=== PATIENT | female | born 1985 | race Asian ===

== ENCOUNTER 2022-10-12 15:12 | Outpatient (CLI) | payer OTHER, SELFPAY | END 2022-10-12 15:13 | disposition home or self-care (01) | PROVIDERS: Visit Provider Nurse Practitioner Family | DX: N39.0 Urinary tract infection, site not specified (principal) | CPT/HCPCS: 87086 ==

== ENCOUNTER 2023-02-18 08:05 | Outpatient (CLI) | payer OTHER, SELFPAY ==
--- NOTE | 2023-02-18 08:15 | CRLHL7_ITS ---
For Patients: As a result of the Century Cures Act, medical imaging exams and procedure reports are released immediately into your electronic medical record. You may view this report before your referring provider. If you have questions, please contact your health care provider. INDICATION: First trimester scan, establish dates. COMPARISON: None. TECHNIQUE: Real-time linda-scale imaging of the pelvis was performed. FINDINGS: Sonographic imaging demonstrates a single living intrauterine gestation. The embryo demonstrates a regular cardiac rate measuring 179 beats per minute. The embryo`s crown-rump length measurement of 2.0 cm corresponds to a gestational age of 8 weeks 4 days with a sonographic due date of 09/26/2023. There is a normal-appearing yolk sac. There are no gross abnormalities noted within the embryo at this early state of development. The gestational sac has a normal appearance. There is no evidence of a perigestational hemorrhage. The amount of fluid within the sac appears appropriate for gestational age. The cervix is closed. The myometrium appears normal. The ovaries are of normal size. Corpus luteal cyst left ovary measuring 2.0 cm. There are no suspicious fluid collections noted in the cul-de-sac. IMPRESSION: Normal first trimester OB ultrasound exam. Gestational age calculated at 8 weeks 4 days with a sonographic due date of 09/26/2023. Dictated by Pj Pearce MD @ 02/18/2023 11:08:57 AM (Electronically Signed)
== END 2023-02-18 08:06 | disposition home or self-care (01) ==
LOC: US 08:06
PROVIDERS: Visit Provider Physician Assistant
DX: Z34.91 Encounter for supervision of normal pregnancy, unspecified, first trimester (principal); Z3A.08 8 weeks gestation of pregnancy
CPT/HCPCS: 76817; 86592; 86703; 86762; 86787; 86850; 86900; 86901; 87086; 87491; 87591

== ENCOUNTER 2023-02-18 09:13 | Outpatient (CLI) | payer OTHER, SELFPAY ==
[2023-02-18 14:34] LABS: Chlamydia DNA Amplified* NOT DETECTED (No Detected); GC DNA Amplified* NOT DETECTED (No Detected)
== END 2023-02-18 09:14 | disposition home or self-care (01) ==
PROVIDERS: Visit Provider Physician Assistant
DX: Z34.91 Encounter for supervision of normal pregnancy, unspecified, first trimester (principal); Z3A.08 8 weeks gestation of pregnancy
CPT/HCPCS: 86592; 86703; 86762; 86787; 86803; 86850; 86900; 86901; 87086; 87340; 87491; 87591

== ENCOUNTER 2023-07-06 09:29 | Outpatient (CLI) | payer OTHER, SELFPAY | END 2023-07-06 09:30 | disposition home or self-care (01) | LOC: NFLDREF 07-08 13:04 | PROVIDERS: Visit Provider Obstetrics & Gynecology | DX: Z34.90 Encounter for supervision of normal pregnancy, unspecified, unspecified trimester (principal) | CPT/HCPCS: 86592 ==

== ENCOUNTER 2023-08-31 09:34 | Outpatient (CLI) | payer OTHER, SELFPAY ==
--- NOTE | 2023-08-31 09:45 | CRLHL7_ITS ---
For Patients: As a result of the Century Cures Act, medical imaging exams and procedure reports are released immediately into your electronic medical record. You may view this report before your referring provider. If you have questions, please contact your health care provider. INDICATION: Planned TECHNIQUE: Real time linda scale imaging of the fetus was performed. COMPARISON: 02/18/2023 FINDINGS: Sonographic imaging demonstrates a single living intrauterine gestation. Fetus demonstrates a regular cardiac rate of 130 beats per minute. Fetus has a vertex position. The placenta lies fundal. Amniotic fluid volume appears normal and there is a single deepest pocket of 4.4 cm. The estimated weight is 2913gm which lies at the 61st %. BPD 47th percentile. HC 38th percentile. AC 82nd percentile. FL 29 percentile. The fetus was active and demonstrated normal breathing movements. There was normal flexion and extension of the trunk and extremities. IMPRESSION: Normal biophysical profile score 8/8. Sonographic gestational age 36 weeks 1 day and sonographic due date 09/27/2023. Good correlation with dates. Estimated weight 61st percentile. Abdominal circumference 82nd percentile. Dictated by Pj Pearce MD @ 08/31/2023 1:04:03 PM (Electronically Signed)
== END 2023-08-31 09:35 | disposition home or self-care (01) ==
LOC: US 09:34
PROVIDERS: Visit Provider Obstetrics & Gynecology
DX: O09.523 Supervision of elderly multigravida, third trimester (principal); O34.219 Maternal care for unspecified type scar from previous cesarean delivery; Z98.891 History of uterine scar from previous surgery; Z3A.36 36 weeks gestation of pregnancy
CPT/HCPCS: 76816; 76819; 87081; 87653

== ENCOUNTER 2023-09-13 20:53 | Inpatient (IN) | payer OTHER, SELFPAY ==
[2023-09-13 20:22] VITALS: BP 112/60; PULSE 80; RESP 16; TEMP 36.7
[2023-09-13 20:47] LABS: Amnisure Rom* POSITIVE
--- NOTE | 2023-09-13 21:00 | P.LDBA_ITS ---
Subjective History of Present Illness Narrative: Patient is being admitted to Labor and Delivery for PROM at 37 6/7 weeks. She is a 37 year old at 37 6/7 weeks gestation. She is not feeling strong contractions. Her cervical exam in clinic today was / -1. Specific Issues/Plans MARCEL 09/28/23 by LMP, c/w 1st trimester USN Spouse: Dustin. Daughter: Jeanette. Baby: Girl! desires TOLAC - consent completed 07/06 H&P 09/07/23 by CGM 1. AMA * 03/23/23 Maternity T21: No increased risk for aneuploidy. * 04/29/2023 [facility] LvL 2 USN: Transverse w/ head on maternal L, fundal placenta w/o previa, 3 vessel cord, SDP: 3.9cm. EFW: 254gm, 9oz., 71%. No anatomic abnormalities were identified. 2. History of * Induction for severe right lower quadrant pain: Arrest of descent, suspected chorio, right tubal torsion * Desires * Likelihood of successful : 54.3% (previously thought to be 88%) * Consent form given to the patient and reviewed with her on 03/23/2023 * Consent signed: 07/06/23 * Ultrasound for EFW at 36 weeks: EFW at 61st percentile. AC at 82nd percentile. 3. Anxiety, doing well without medication 4/ h/o LEEP 2016, see problem list for pap/colp history * pap 02/18/23:NILM, negative HPV Tdap 07/20 Flu: 08/03/2023 Declines COVID OB - Problem Based A/P Additional Plan (1) Hx of section: Status: Acute Plan: Desires TOLAC. (2) PROM (premature rupture of membranes): Status: Acute Plan: Given lack of apparent active labor and that nearly 8 hrs have passed since probable SROM, I recommended initiation of pitocin. Continuous monitoring. I anticipate successful TOLAC. Epidural as desired. Delivery/Labor/Induction Plan Induction method: per pitocin protocol OB Result Labs Labs: Hemoglobin 12.1 today Labs HBsAG: negative OB Exam Physical Exam Vital signs: Temp Pulse Resp BP 98.1 F 80 16 112/60 09/13/23 20:22 09/13/23 20:22 09/13/23 20:22 09/13/23 20:22 Narrative: Physical exam: General: No acute distress Psych: Alert and oriented x3, full affect HEENT: Normocephalic, atraumatic Neck: No cervical adenopathy, no thyromegaly Heart: Regular rate and rhythm, no murmur rub or gallop Lungs: Clear to auscultation bilaterally Abdomen: Soft, nontender, gravid, cephalic lie, back to maternal right, EFW 7 lb by Jesse's Lower extremities: No edema or erythema Cervical exam per RN: / 0. tracing: Baseline 130 / accels present / no decels / moderate variability. Reactive, reassuring tracing
[2023-09-13 21:49] LABS: Basophils Absolute Auto 0.04 K/uL (0.00-0.30); Basophils Percent Auto 0.5 % (0.0-3.0); Eosinophils Percent Auto 1.1 % (0.0-7.0); Hematocrit 36.7 % (33.0-51.0); Hemoglobin* 12.1 gm/dL (12.0-16.0); Immature Granulocytes Abs Auto 0.05 K/uL (0.00-0.30); Immature Granulocytes Pct Auto 0.6 %; Lymphocytes Percent Auto 17.8 % (20-44); Mean Corpuscular HGB Conc 33 gm/dL (32-36); Mean Corpuscular Hemoglobin 30 pg (26-34); Mean Corpuscular Volume 90 fL (80-100); Monocytes Percent Auto 6.6 % (0.0-11.0); Neutrophils Percent Auto 73.4 % (42.0-72.0); Platelet Count* 218 K/uL (140-440); RDW Coefficient of Variation % 11.6 % (11.5-15.5); Red Blood Count 4.08 m/uL (4.00-5.20)
[2023-09-13 21:53] LABS: Slide Review Reflex No
[2023-09-13 22:10] VITALS: TEMP 37.2
[2023-09-13] MEDS: LACTATED RINGERS 1000 ML 1,000 ML 125 ML IV (22:20)
[2023-09-13] MEDS: OXYTOCIN 30 unit/500 ML in NS 30 UNIT/500 ML BAG IVPB (22:20)
[2023-09-13 23:45] VITALS: BMI 26.6
[2023-09-14] VITALS (90 sets, daily range): BP systolic 77–156; BP diastolic 43–82; PULSE 66–112; RESP 16–18; TEMP 36.5–37.1; O2SAT 92–100
--- NOTE | 2023-09-14 05:48 | PM.OBPNL ---
Subjective Time Seen by Provider: 05:30 Date Seen: 09/14/23 Narrative: Canelo is a 37 yo O1B8-3-30 at 38 0/7 weeks' gestation admitted after SROM at 2:30 PM yesterday. She has a history of prior for arrest of descent in the setting of chorioamnionitis. She also had right tubal torsion and right fallopian tube was removed at that time. At presentation to Center last night, she was found to be 6 cm / 90 / 0 station by RN. She was not corinna regularly at that time, and was not having pain with contractions. She was started on pitocin for augmentation. Since at least 3:30, she has had stronger contractions. She is breathing through them. She has not yet requested epidural. Objective Exam: Gen - NAD Abd - soft, NT, gravid Cervical exam - 7 / 100 / -1 and deviated slightly to patient's right. AROM of forebag, scant clear fluid noted. Vital Signs: Last Vital Signs Temp 97.9 F 09/14/23 04:29 Pulse 68 09/14/23 03:31 Resp 16 09/14/23 00:02 BP 106/63 09/14/23 03:31 Pulse Ox 98 09/14/23 03:31 Comments: tracing: Baseline 130 / accels present / no deceleration / moderate variability Contractions Q 4-5 min Pitocin at 2 mU/min Contractions Pitocin Rate (mU/min): 2 Assessment Assessment: active labor Amniotic Membrane Status: AROM (AROM of forebag 0530) Status: Category l Rod And Tube Straightener Variability: Moderate (6-25) Tracing Comments: Category I tracing, reassuring Labor Progress: She has had slow progress through active phase. At presentation, she did not appear to be in active labor despite cervical dilation of 6 cm; she was not corinna regularly or having pain with contractions. I suspect disadvantageous position of head. TOLAC. Hx for arrest of descent. Maternal Status: Reassuring. Plan Plan: Continue pitocin augmentation. Repeat cervical exam 0730, or sooner depending on clinical situation. Favor IUPC placement if no change in cervix.
[2023-09-14] MEDS: LIDOCAINE 2% (PF) 5 ML VIAL EPIDURAL (06:38)
[2023-09-14] MEDS: ROPIVACAINE 0.2% 100 ml 100 ML 12 MG EPIDURAL (06:38)
--- NOTE | 2023-09-14 07:08 | P.ANBPRC_ITS ---
[facility] Medical History Torsion of right fallopian tube ?N83.521 - Torsion of right fallopian tube (ICD-10) History of abnormal cervical Papanicolaou smear ?Z87.42 - Personal history of other diseases of the female genital tract (ICD-10) Tinnitus ?H93.19 - Tinnitus, unspecified ear (ICD-10) Eczema ?L30.9 - Dermatitis, unspecified (ICD-10) History of abnormal cervical Papanicolaou smear ?Z87.42 - Personal history of other diseases of the female genital tract (ICD-10) Surgical History Status post primary low transverse section (08/2021) ?Z98.891 - History of uterine scar from previous surgery (ICD-10) History of unilateral salpingectomy (08/2021) ?Z90.79 - Acquired absence of other genital organ(s) (ICD-10) 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 Non-smoker What is your current living situation?: I presently have a place to live Problems where you live: no known problems In the past 12 months, utilities in danger of being shut off: no In past 12 months, lack of transportation kept you from medical appts, meetings, work, or getting things needed for daily living: no In the past 12 mos, have been you worried that your food would run out before you had money to buy more?: never true In the past 12 mos, the food you bought just didn't last and you didn't have money to buy more?: never true Smoking Status: Never smoker How often does anyone, including family, friends and others, physically hurt you : never How often does anyone, including family, friends and others, insult or talk down to you: never How often does anyone, including family, friends and others, threaten you with harm: never How often does anyone, including family, friends and others, scream or curse at you: never Little interest or pleasure in doing things: not at all Feeling down, depressed, or hopeless: not at all Meds Home Medications and Allergies Home Medications Medication Instructions Recorded Confirmed Type prenat.vits,yesenia,woi-vkye-ciudk 1 tab PO QDAY 02/18/23 09/13/23 History cetirizine 10 mg capsule (Zyrtec) 10 mg PO QDAY PRN 07/20/23 09/13/23 History Allergies Allergy/AdvReac Type Severity Reaction Status Date / Time No Known Allergies Allergy Verified 09/13/23 20:25 Results Labs Labs: Laboratory Results - last 24 hr 09/13/23 09/13/23 20:38 21:02 WBC 8.80 RBC 4.08 Hgb 12.1 Hct 36.7 MCV 90 MCH 30 MCHC 33 RDW Coeff of Shaye 11.6 Plt Count 218 Neut % (Auto) 73.4 H Lymph % (Auto) 17.8 L Price % (Auto) 6.6 Eos % (Auto) 1.1 Baso % (Auto) 0.5 Neut # (Auto) 6.50 Lymph # (Auto) 1.60 Price # (Auto) 0.60 Eos # (Auto) 0.10 Baso # (Auto) 0.04 Abs Immat Gran (auto) 0.05 Imm/Tot Granulo (auto) 0.6 Membrane Rupture POSITIVE Blood Type B Positive Antibody Screen NEGATIVE Vital Signs Vital Signs: Last Vital Signs Temp 97.9 F 09/14/23 04:29 Pulse 67 09/14/23 07:06 Resp 16 09/14/23 00:02 BP 118/58 L 09/14/23 07:06 Pulse Ox 100 09/14/23 07:07 Weight: 68.356 kg Height: 160.02 cm Anesthesia Procedures Epidural Insertion Patient Location: OB Start Time: 06:30 Stop Time: 07:08 Start Date: 09/14/23 Stop Date: 09/14/23 Reason for Block: procedure for pain Patient Position: sitting Performed By: Veto Perdomo [employer]: Sukh Robles Preanesthetic Checklist: IV checked, risks and benefits discussed, monitors and equipment checked, pre-op evaluation, timeout performed and anesthesia consent Prep: chlorhexidine gluconate Monitoring: blood pressure monitoring, continuous pulse oximetry and heart rate Approach: midline Vertebral Space: lumbar (1-5) Epidural Technique: PARAS saline Needle Type: Tuohy needle Injection Technique: continuous catheter Needle gauge: 17 Needle Length (cm): 10 cm Needle Insertion Depth (cm): 7 Catheter Gauge: 19 Catheter Type: multi-orifice Catheter at skin depth (cm): 14 Test Dose Result: negative and lidocaine 1.5% with epinephrine 1 to 200,000
[2023-09-14] MEDS: LACTATED RINGERS 1000 ML 1,000 ML 125 ML IV ×2 (07:14→12:15)
[2023-09-14] MEDS: PHENYLEPHRINE 100 MCG/ML SYRINGE IVP ×6 (07:28→10:10)
--- NOTE | 2023-09-14 07:59 | P.OBPN_ITS ---
Subjective Time Seen by Provider: 07:45 Date Seen: 09/14/23 Narrative: Ms. Garcia is a 37yo at 38w0d admitted for SROM. course is complicated by prior delivery (?arrest of descent, chorio, tubal torsion) and AMA. Her labor course has been complicated by labor dystocia in the active phase, where she was 6cm on admission but not corinna regularly/painfully. She made change to 7cm as of 0330 by RN exam, unchanged at [address] Aldrich's exam. In the interim, she has noted increasingly painful contractions and how is s/p epidural placement. Denies vaginal bleeding, endorses movement. Reviewed abnormal progression through the active phase of labor. Pitocin is running at 2mu/min. Discussed potential risks/benefits of IUPC and potential diagnosis of arrest of dilation if unchanged at 0930. Objective Exam: EXAM: Vital Signs: as above Heart Tones: Category 2. Baseline 125bpm, moderate variability, accelerations present, late decelerations present. Ongoing treatment of h ypotension with phenylephrine. SVE: /0 Vital Signs: Last Vital Signs Temp 97.8 F 09/14/23 07:18 Pulse 94 09/14/23 07:54 Resp 18 09/14/23 07:18 BP 99/51 L 09/14/23 07:54 Pulse Ox 100 09/14/23 07:52 Contractions Pitocin Rate (mU/min): 2 Assessment Amniotic Membrane Status: AROM (AROM of forebag 0530) Status: Category l Plan Plan: Ms. Garcia is a 37yo here for SROM in the setting of TOLAC. course complicated by prior ([employer] success 54%, arrest of descent/chorio/tubal torsion), AMA. She has had abnormal progression through the active phase of labor, now /0 on pitocin at 2mu/min. status has been reassuring in general, though we are currently treating maternal hypotension s/p epidural placement. Moderate variability with accelerations noted. - Plan to continue pitocin titration per FHR and toco data. We will hold off on IUPC placement at this time, given progression of her cervical exam. - Anticipate next exam in 2 hours, sooner as clinically indicated. - BT B+ - GBS negative - EFW 2913gm, 61%ile on 08/31
[2023-09-14] MEDS: LACTATED RINGERS 1000 ML 1,000 ML 1200 ML IV (08:03)
[2023-09-14] MEDS: ePHEDrine sulfate 5 MG/ML inj 10 MG IVP ×2 (08:23→08:35)
[2023-09-14] MEDS: ONDANSETRON 2 MG/ML inj 4 MG IV (08:37)
--- NOTE | 2023-09-14 13:20 | P.OBPN_ITS ---
Subjective Time Seen by Provider: 13:00 Date Seen: 09/14/23 Narrative: Ms. Garcia is a 37yo at 38w0d admitted for SROM. course is complicated by prior delivery (?arrest of descent, chorio, tubal torsion) and AMA. Her labor course was notable for slow progression through the active phase of labor and symptomatic hypotension s/p epidural placement. She has been complete for 3 hours, pushing for about 2 of those. Pushing was held due to symptomatic hypotension requiring treatment and ultimately improved after reducing epidural dose with Anesthesia. Category 2 FHR tracing, for recurrent variable decelerations that rapidly improve. Outside of decels, there is a normal baseline, moderate variability and accelerations present. In to assess pushing progress, where she has made modest descent from 0 to +1. Position palpates ROT and was confirmed by US - where d iscussion was held regarding continued pushing vs trial of manual rotation. Risks of manual rotation including failure to rotate, return to OT position, heart rates changes and cord prolapse reviewed. Patient wished to proceed. The head was gently elevated, easily turned in counter clockwise direction to direct OA. Upon a push, the head re-engaged in the pelvis with descent noted. Plan to continue maternal pushing efforts for another hour. At that time, she will have been complete/pushing for 4 hours. All questions answered. Objective Vital Signs: Last Vital Signs Temp 97.9 F 09/14/23 13:10 Pulse 72 09/14/23 13:10 Resp 18 09/14/23 13:10 BP 105/57 L 09/14/23 13:10 Pulse Ox 100 09/14/23 07:52 Contractions Pitocin Rate (mU/min): 2 Assessment Amniotic Membrane Status: AROM (AROM of forebag 0530) Status: Category l
--- NOTE | 2023-09-14 14:34 | P.OBPN_ITS ---
Subjective Time Seen by Provider: 13:15 Date Seen: 09/14/23 Narrative: Delayed documentation due to patient care. Ms. Garcia is a 37yo at 38w0d admitted for SROM. course is complicated by prior delivery (?arrest of descent, chorio, tubal torsion) and AMA. Her labor course was notable for slow progression through the active phase of labor and symptomatic hypotension s/p epidural placement. She has been complete for 3 hours, pushing for about 2 of those. Pushing was held due to symptomatic hypotension requiring treatment and ultimately improved after reducing epidural dose with Anesthesia. She has been complete and pushing for more than 4 hours. She is 1 hour post manual rotation for OT position, now GT (<45 degrees rotation required) and +2 station. There is moderate caput. She makes good descent with expulsive efforts, pelvis is felt to be adequate. heart rate is category 2 for recurrent variable decelerations. Between decels, there is a normal baseline and moderate variability. Acceleration can be elicited with scalp stim. I explained with Canelo that given her prolonged 2nd stage of labor, I would recommend we proceed with expedited delivery. In addition, she has had a persisting category 2 heart rate tracing for variable decelerations but in general her status is reassuring. I explained that we have 2 options, the including trial of forceps assisted vaginal delivery verses a repeat delivery. I explained operative delivery can be accomplished via vacuum or forceps. In her instance, I feel forceps would be the optimal modality given +2 station, moderate caput and rotation required from GT position. Risks of forceps assisted vaginal delivery were explicitly reviewed - including failure requiring delivery, higher order maternal perineal lacerations (OASIS injury/3rd and 4th degree), bruising, laceration, nerve palsy and/or skull fracture. I explained that mediolateral episiotomy has been shown in some studies to decrease the incidence of OASIS injuries, where we would make a d ecision at the time of delivery whether episiotomy is required given to degree of descent and assessment of perineum. Alternatively, we reviewed risks with repeat delivery including bleeding, infection, damage to surrounding structures, and difficult extraction. All questions were answered to the best my abilities. Following this discussion, she desires trial of forceps assisted vaginal delivery. Plan to complete this in the operating room, to allow for immediate conversion to repeat delivery if required. Written consent for trial of forceps, forceps assisted vaginal delivery, repeat delivery and proceed as indicated was obtained. Objective Vital Signs: Last Vital Signs Temp 98.6 F 09/14/23 13:55 Pulse 92 09/14/23 14:29 Resp 18 09/14/23 13:10 BP 113/60 09/14/23 14:29 Pulse Ox 100 09/14/23 14:07 Contractions Pitocin Rate (mU/min): 2 Assessment Amniotic Membrane Status: AROM (AROM of forebag 0530) Status: Category l
[2023-09-14] MEDS: ACETAMINOPHEN 500 MG TABLET 1000 MG PO (17:50)
--- NOTE | 2023-09-14 19:48 | W.PM.VAGDEL1 ---
Procedure Procedure Done: Global Events: Previous and AMA Intrapartal Events: Labor Augmentation and Prolonged 2nd Stage >2.5 Hrs Delivery augmentation: pitocin Delivery monitor: external FHT Route of delivery: forceps Indication for instrumentation: other (Prolonged second stage, category 2 FHR tracing) Episiotomy description: None Laceration description: Perineal - 3rd Degree (3A) Delivery repair: Vicryl Estimated blood loss (mL): 380 Anesthesia type: Epidural Disposition: floor Complications: Prolonged second stage of labor Category 2 FHR tracing Narrative: Ms. Garcia is a 37yo at 38w0d admitted for SROM. course is complicated by prior delivery (?arrest of descent, chorio, tubal torsion) and AMA. Labor course was notable for slow progression in the active phase and prolonged second stage. She had persistent OT position, s/p manual rotation to direct OA. She pushed for an hour following rotation, achieving station of +2 with GT position. At this time, the second stage had been 4.5 hours in length where expedited delivery was recommended. Risks/benefits of trial of forceps vs repeat reviewed, where written consent was obtained for trial of forceps assisted vaginal delivery and proceed as indicated was obtained. Patient was relocated to the OR in order to allow for expedient conversion to repeat if forceps were unsuccessful. Patient was placed in lithotomy position and bladder drained of clear urine with a red rubber catheter, about 75 mL. The SVE notable for +2 station, GT position, moderate caput and no moulding. Maternal pelvis adequate. EFW approximately 3200g. A matched set of Luikhart forceps was obtained. The posterior blade was coated with soap and inserted in the patient's vagina on the left, in cephalic application along right ear. The anterior blade was then applied to the left side of the head in direct cephalic application. The forceps lock was readily articulated. Correct application was confirmed with sagittal suture in the midline between the blades and the posterior fontanelle just superior to the plane of the shanks. No maternal soft tissue was entrapped between the blades. Forceps application time was 1335. Forceps utilized to gently rotate head about 30? clockwise to direct OA. With the next maternal contraction, careful downward traction was placed applied alongside maternal expulsive efforts. Excellent descent was noted and the occiput distended the perineum. The forceps handles were then directed cephalad in a J fashion and the forceps were disarticulated carefully just prior to expulsion of the head, at which time the perineum was intact. The anterior shoulder readily delivered with gentle downward traction and a vigorous delivered, born and making spontaneous cry and placed on maternal abdomen. Delayed cord clamping was performed with pediatric team in attendance, for 60 seconds. The cord was clamped and cut, and placenta delivered after active management of the 3rd stage. The perineum was inspected and the 3A laceration was noted. Repair was performed under existing epidural anesthesia in layers. Capsule of the external anal sphincter was reinforced with 2 interrupted 0 Vicryl sutures. Deep vaginal/perineal tissue was reinforced with interrupted 0 Vicryl sutures. A running 2 0 Vicryl was then utilized to repair from the vaginal apex down the perineum, and ultimately was run in a subcuticular fashion from the most distal point of the tear back into the vagina and tied. Uterine tone was noted to be excellent. QBL 380mL. Mother and safe together in recovery. No complications. Debrief completed. Gender: Female total score - 1 minute: 8 total score - 5 minute: 9
[2023-09-14] MEDS: IBUPROFEN 600 MG TABLET PO (20:14)
[2023-09-14] MEDS: MAGNESIUM HYDROXIDE 30 ML ORAL.SUSP PO (20:14)
[2023-09-15 00:04] VITALS: BP 98/61; PULSE 75; RESP 16; TEMP 37; O2SAT 96
[2023-09-15 03:52] VITALS: BP 101/64; PULSE 65; RESP 12; TEMP 36.6; O2SAT 98
[2023-09-15 06:49] LABS: Hemoglobin* 9.8 gm/dL (12.0-16.0)
--- NOTE | 2023-09-15 07:41 | PM.OBDSVD1 ---
DS: Providers Provider Date Seen: 09/15/23 Date of admission: 09/13/23 20:53 Primary care physician: Not a Local Provider Admitting Clinician: Pia Aldrich MD Attending Physician on discharge: Pia Aldrich MD Date of Discharge: 09/15/23 DS: Diagnosis Discharge Diagnosis (1) Lactating mother: Status: Acute (2) care following vaginal delivery: Status: Acute (3) Forceps delivery: Status: Acute (4) Anemia, : Status: Acute Exam Narrative: Exam Narrative: GENERAL APPEARANCE:? normal affect, alert, no distress? MOOD:? appropriate? CHEST:? clear to auscultation and percussion? HEART:? regular rate and rhythm? ABDOMEN:? soft, non-tender the uterine fundus is 2 cm Below Umbilicus, Midline and is appropriate for the stage of recovery. ? PERINEUM:? mild edema of the perineum, there is a 3A degree that is healing well.? EXTREMITIES:? normal and no edema? Patient has no complaints? No active bleeding?? Doing well? She is requesting discharge home.? Const: Vital Signs, click to edit/add: Vital Signs - 24 hr 09/14/23 07:42 09/14/23 07:46 09/14/23 07:47 Temperature Pulse Rate 96 Pulse Rate [Pulse Oximeter] Respiratory Rate Blood Pressure 103/50 L Blood Pressure [Ri ght Arm] Pulse Oximetry 100 100 Oxygen Delivery Me thod 09/14/23 07:50 09/14/23 07:52 09/14/23 07:54 Temperature Pulse Rate 97 94 Pulse Rate [Pulse Oximeter] Respiratory Rate Blood Pressure 99/53 L 99/51 L Blood Pressure [Ri ght Arm] Pulse Oximetry 100 Oxygen Delivery Me thod 09/14/23 08:05 09/14/23 08:14 09/14/23 08:14 Temperature 97.9 F Pulse Rate 71 73 Pulse Rate [Pulse Oximeter] Respiratory Rate 16 Blood Pressure 90/50 L 94/52 L Blood Pressure [Ri ght Arm] Pulse Oximetry Oxygen Delivery Me thod 09/14/23 08:20 09/14/23 08:21 09/14/23 08:24 Temperature Pulse Rate 83 75 71 Pulse Rate [Pulse Oximeter] Respiratory Rate Blood Pressure 90/54 L 85/48 L 119/58 L Blood Pressure [Ri ght Arm] Pulse Oximetry Oxygen Delivery Me thod 09/14/23 08:29 09/14/23 08:34 09/14/23 08:40 Temperature Pulse Rate 95 87 104 H Pulse Rate [Pulse Oximeter] Respiratory Rate Blood Pressure 113/54 L 90/53 L 91/55 L Blood Pressure [Ri ght Arm] Pulse Oximetry Oxygen Delivery Me thod 09/14/23 08:44 09/14/23 08:50 09/14/23 08:53 Temperature 97.8 F Pulse Rate 112 H 69 Pulse Rate [Pulse Oximeter] Respiratory Rate Blood Pressure 77/48 L 92/43 L Blood Pressure [Ri ght Arm] Pulse Oximetry Oxygen Delivery Me thod 09/14/23 08:54 09/14/23 09:00 09/14/23 09:10 Temperature Pulse Rate 77 77 91 Pulse Rate [Pulse Oximeter] Respiratory Rate Blood Pressure 95/53 L 88/52 L 94/49 L Blood Pressure [Ri ght Arm] Pulse Oximetry Oxygen Delivery Me thod 09/14/23 09:20 09/14/23 09:24 09/14/23 09:31 Temperature Pulse Rate 99 96 91 Pulse Rate [Pulse Oximeter] Respiratory Rate Blood Pressure 102/52 L 97/55 L 105/60 Blood Pressure [Ri ght Arm] Pulse Oximetry Oxygen Delivery Me thod 09/14/23 09:34 09/14/23 09:45 09/14/23 09:55 Temperature Pulse Rate 93 101 H 93 Pulse Rate [Pulse Oximeter] Respiratory Rate Blood Pressure 99/57 L 95/51 L 94/52 L Blood Pressure [Ri ght Arm] Pulse Oximetry Oxygen Delivery Me thod 09/14/23 10:10 09/14/23 10:17 09/14/23 10:34 Temperature 97.9 F Pulse Rate 89 93 Pulse Rate [Pulse Oximeter] Respiratory Rate Blood Pressure 87/53 L 108/56 L Blood Pressure [Ri ght Arm] Pulse Oximetry Oxygen Delivery Me thod 09/14/23 10:45 09/14/23 10:55 09/14/23 11:11 Temperature Pulse Rate 77 81 67 Pulse Rate [Pulse Oximeter] Respiratory Rate Blood Pressure 95/56 L 90/54 L 100/62 Blood Pressure [Ri ght Arm] Pulse Oximetry Oxygen Delivery Me thod 09/14/23 11:19 09/14/23 11:27 09/14/23 11:41 Temperature 97.7 F Pulse Rate 74 86 Pulse Rate [Pulse Oximeter] Respiratory Rate Blood Pressure 107/61 116/69 Blood Pressure [Ri ght Arm] Pulse Oximetry Oxygen Delivery Me thod 09/14/23 12:26 09/14/23 12:27 09/14/23 12:41 Temperature 97.9 F Pulse Rate 70 92 Pulse Rate [Pulse Oximeter] Respiratory Rate Blood Pressure 93/55 L 106/57 L Blood Pressure [Ri ght Arm] Pulse Oximetry Oxygen Delivery Me thod 09/14/23 13:10 09/14/23 13:10 09/14/23 13:55 Temperature 97.9 F 98.6 F Pulse Rate 72 Pulse Rate [Pulse Oximeter] Respiratory Rate 18 18 Blood Pressure 105/57 L Blood Pressure [Ri ght Arm] Pulse Oximetry Oxygen Delivery Me thod 09/14/23 13:57 09/14/23 13:59 09/14/23 14:02 Temperature Pulse Rate 86 Pulse Rate [Pulse Oximeter] Respiratory Rate Blood Pressure 138/63 Blood Pressure [Ri ght Arm] Pulse Oximetry 100 100 Oxygen Delivery Me thod 09/14/23 14:07 09/14/23 14:17 09/14/23 14:29 Temperature Pulse Rate 93 92 Pulse Rate [Pulse Oximeter] Respiratory Rate Blood Pressure 144/62 H 113/60 Blood Pressure [Ri ght Arm] Pulse Oximetry 100 Oxygen Delivery Me thod 09/14/23 14:40 09/14/23 14:45 09/14/23 14:59 Temperature 98.2 F Pulse Rate 89 95 Pulse Rate [Pulse Oximeter] Respiratory Rate 16 Blood Pressure 119/69 125/66 Blood Pressure [Ri ght Arm] Pulse Oximetry Oxygen Delivery Me thod 09/14/23 15:14 09/14/23 15:29 09/14/23 15:40 Temperature 98.1 F Pulse Rate 82 99 Pulse Rate [Pulse Oximeter] Respiratory Rate 16 Blood Pressure 106/61 113/66 Blood Pressure [Ri ght Arm] Pulse Oximetry Oxygen Delivery Me thod 09/14/23 15:44 09/14/23 16:24 09/14/23 16:26 Temperature Pulse Rate 101 H 97 Pulse Rate [Pulse Oximeter] Respiratory Rate Blood Pressure 115/68 108/56 L Blood Pressure [Ri ght Arm] Pulse Oximetry 99 Oxygen Delivery Me thod 09/14/23 16:26 09/14/23 20:04 09/15/23 00:04 Temperature 98.7 F 98.3 F 98.6 F Pulse Rate Pulse Rate [Pulse Oximeter] 94 75 75 Respiratory Rate 16 16 16 Blood Pressure Blood Pressure [Ri ght Arm] 108/56 L 108/67 98/61 Pulse Oximetry 99 97 96 Oxygen Delivery Me thod Room Air Room Air Room Air 09/15/23 03:52 Temperature 97.9 F Pulse Rate Pulse Rate [Pulse Oximeter] 65 Respiratory Rate 12 Blood Pressure Blood Pressure [Ri ght Arm] 101/64 Pulse Oximetry 98 Oxygen Delivery Me thod Room Air Documenting provider has reviewed patient's vital signs: yes OB - DS: Summary Hospital Course Hospital Course: The patient is a 37 year old G 2 P 2 at 38.0 weeks gestation that was admitted to the Center on 09/13/23 for SROM. She desired a TOLAC and was AMA. She had a vaginal delivery complicated by prolonged second stage requiring forceps assisted delivery. She delivered a viable female . She is breast feeding denies complications or concerns. the patient has done well. Urinary output is adequate and she is voiding without difficulty.? Has a good appetite, is tolerating a general diet, is passing flatus, and has not had a bowel movement.? Has small amount of rubra lochia.? She is ambulating well. She is insure what she francis like to do for control. Reviewed options that are compatible with . Peripartum Data Infant delivery method: Vaginal (forceps assisted. ) Laceration description: Perineal - 3rd Degree (3A) Episiotomy description: None complications: none Infant Gender: Female Discharge Plan: Home Status at Discharge Functional status at discharge: independent ambulation Overall status at discharge: patient is progressing back to baseline Time Spent with Patient Time attestation: Total time spent providing and/or coordinating discharge services: Discharge Plan Discharge Disposition: Home, Self-Care Date of Admission: 09/13/23 20:53 Attending Provider on Discharge: Hanane Salter Primary Care Provider: Provider,Not a Local Condition: Stable Anticipated Discharge Date/Time: 09/15/23 16:00 Discharge Medications: New docusate sodium 100 mg Capsule 100 mg PO DAILY Qty: 90 0RF Rx Instructions: Take 1-2 tablets daily as needed for constipation. ibuprofen 600 mg Tablet 600 mg PO Q6H PRNQty: 30 0RF ferrous sulfate 325 mg (65 mg iron) tablet,delayed release (DR/EC) 325 mg PO Q OTHER DAY Qty: 90 0RF Continued prenat.vits,yesenia,pef-sebz-prosy Tablet 1 tab PO QDAY triamcinolone acetonide 0.1 % cream 1 applic topical BID PRN (Reason: eczema) Qty: 30 1RF Zyrtec 10 mg capsule 10 mg PO QDAY PRN Discharge Orders: Discharge Order (Routine); Ordered 09/15/23 Ordered By: Hanane Salter Patient Education: OB Vaginal/Breast Feeding Additional Instructions: Discharge instructions were reviewed with the patient including signs and symptoms of infection and home going medications.? Lifting Restrictions: 20 pounds for 6? weeks? ?? Do not drive while taking narcotic pain meds.? Off Work or School for 6 weeks.? ?? Symptoms to report to doctor:? -Bleeding that saturates more than one pad per hour? -Passing clots larger than the size of a golf ball? -Pain not relieved by prescribed medication? -Fever above 100.4 degrees Fahrenheit? -A foul vaginal odor? -Difficulty in emotions, mood and functions? -Thoughts of hurting yourself and/or ? -Painful, reddened area in your breast? -Any drainage, redness or tenderness in your IV/epidural site? -Severe headache that doesn't improve after taking medications? -Changes in vision, including temporary loss of vision, blurred vision, and/or light sensitivity? -Upper abdominal pain (usually under ribs on the right side)? -Decrease in urination or painful, frequent urinating? -Chest pain? -Shortness of breath? -Tenderness or pain with redness and/swelling in the calf(s) of your leg? ?? Follow Up in clinic in 2 and 6 weeks.? ?? consultation services are available to all mothers and babies for the first year after delivery.? To make an appointment, please call [phone].? Activity Level: Activity as Tolerated Discharge Diet: Regular Follow Up Appointments: [facility] [Provider Group] Provider,Not a Local [Primary Care Provider] - Forms: [email or web address] Info Instructions
[2023-09-15 08:05] VITALS: BP 105/68; PULSE 77; RESP 16; TEMP 36.6; O2SAT 98
[2023-09-15] MEDS: IBUPROFEN 600 MG TABLET PO ×2 (08:06→15:05)
[2023-09-15] MEDS: DOCUSATE SODIUM 100 MG CAPSULE PO (08:07)
[2023-09-15] MEDS: BENZOCAINE/MENTHOL SPRAY 85 GM AEROSOL 1 APPLIC TOPICAL (08:14)
[2023-09-15 12:04] VITALS: BP 111/72; PULSE 57; RESP 16; TEMP 36.6; O2SAT 98
== END 2023-09-15 15:14 | disposition home or self-care (01) | DRG 768 ==
LOC: OB OUT 20:54 → OB 20:54
PROVIDERS: Obstetrics & Gynecology; Admitting Provider Obstetrics & Gynecology; Visit Provider Obstetrics & Gynecology
DX: O70.21 Third degree perineal laceration during delivery, IIIa (principal); Z37.0 Single live birth; O63.1 Prolonged second stage (of labor); Z3A.37 37 weeks gestation of pregnancy; O99.344 Other mental disorders complicating childbirth; Z98.891 History of uterine scar from previous surgery; F41.1 Generalized anxiety disorder
CPT/HCPCS: 01967; 36415; 76815; 84112; 85018; 85025; 86850; 86900; 86901; 87077; 87186; 88307; A9270; J2371; J2405; J2795; J7120

== ENCOUNTER 2023-09-19 14:13 | Outpatient (CLI) | payer OTHER, SELFPAY ==
--- NOTE | 2023-09-19 17:00 | P.LACCB_ITS ---
Consult Note - Mom Date of Visit Date of visit: 09/19/23 clinical program consultant: Zakia Ag Visit Code: Visit Patient's Information Phone number: [phone] : 2 Para: 2 Allergies No Known Allergies Allergy (Verified 09/28/23 10:47) Mother's Medical History: Medical History (Updated 09/23/23 @ 08:11 by Blake Ricardo PA-C) AMA (advanced maternal age) multigravida 35+ ?O09.529 - Supervision of elderly multigravida, unspecified trimester (ICD- 10) Anxiety Delivery Information Delivery type: Vaginal (forceps) Weeks Gestation: 37.6 Gestational Age: AGA Weight: 3.085 kg Discharge Weight: 2.926 kg Baby's Information Baby's Age at Visit: 5 days Baby's Provider or Clinic: Dr. Collins Jaundice: No Reason for Consult Reason for Consult: concern for supply, baby isn't staying latched Past Experience Past Experience: No (reports not enough milk with first daughter, formula fed her) Current Frequency of Day Feedings: every 2 - 3 hours around the clock Both Breasts: Yes (mom offers) Suck: strong Latch: fairly wide Length of Time: about 30 minutes total Pumping Pumping: No Supplementing EMB Supplement: No Formula Supplement: Yes (is supplementing with about 1.5 oz formula after every feeding) Baby Elimination Number of Wet Diapers a Day: with every feeding Number of BM a Day: with every other feeding, yellow and seedy Breast/Nipple Condition Breast Information: WNL Engorgement: No Maternal Nipple Condition - Left: Common Nipple Maternal Nipple Condition - Right: Common Nipple Sore Nipples: No Onsite Pre-Feed weight: 3.018 kg Post-Feed weight: 3.044 kg Milk Transferred (mL): 26 Pre-Nursing Left Nipple: Within Normal Limits Pre-Nursing Right Nipple: Within Normal Limits Post-Nursing Left Nipple: Within Normal Limits Post-Nursing Right Nipple: Within Normal Limits Assessments/Interventions Assessments/Interventions: Met with mom and this now 5 day old ex- term AGA baby for consult. Mom reports baby is sleepy at breast when mom tries to nurse her, even though she shows signs of hunger beforehand. Mom reports she offers both sides every 2 - 3 hours and baby will take a few suckles, then stop, gets sleepy, will start again with stimulation, but doesn't maintain a nutritive suckle or comes off the breast altogether. This goes on for 10 - 15 minutes/side, then mom offers 1 - 1.5 oz formula. She hasn't started pumping yet but has a Spectra and an Tatiana. Breasts WNL- symmetrical with rounded lower quadrants, intramammary distance < 1.5 inches. Nipples are everted and don't flatten or retract on compression, no damage noted. Mom reports not having enough milk when she delivered her now two year old daughter and she ended up formula feeding her. She denies any breast changes during this - no tenderness in first trimester, no darkening of the areola, no real sense of her milk coming in. She denies any breast surgeries. Baby has gained 122 grams (4 oz) since her weight check on 09/17 and is now 3% below BW at 5 DOL. Mom denies any caput or cephalohematoma at delivery. She thinks baby has equal ROM when turning her head and moving her extremities. Baby's palate is WNL. She doesn't open her mouth very wide but she has a strong suck on a finger and her tongue consistently extends past the gum line. The tongue doesn't have much lateral range of motion and there's some canoeing. The lower frenulum looks like it could be posterior. Mom latched baby to the left side in the football hold and baby seemed to have a somewhat narrow latch; no difference when mom exaggerated nipple to nose. Baby would take 3 - 4 suckles, then stop. She didn't seem to loose the latch, but needed stimulation to start again only to take a few suckles before stopping. This pattern continued, although sometimes baby lost the latch, until mom took her off after about 15 minutes. She was weighed and had transferred 18 ml. A 20 mm nipple shield was tried on the right side. Baby was able to maintain the latch for almost the whole feeding and didn't slip off like she usually did, but still needed a lot of stimulation to keep nursing. After 10 - 15 minutes she was weighed and had transferred 8 ml for total of 26 ml. Milk was seen in the shield after baby had finished. Mom was measured for a flange size and handout given. Plan: 1. Continue nursing baby on demand or at least every three hours. Continue offering both sides and work to keep her awake and actively suckling. Could try the nipple shield if she felt baby was able to better maintain the latch. Discussed the importance of seeing milk in the shield after each use. Suggested she keep the nursing session to no more that 20 - 30 min. 2. Suggested mom start pumping after daytime nursing sessions for about 15 minutes. 3. Supplement baby with 1/2 - 1 oz after if she still seems hungry. Reviewed she may want a little less if she does well at a nursing session. 4. Has NB visit on 09/21. Will f/u by phone on 09/23 to see how things are going. Could have another pre and post weight check, could consider dental referral if no improvement. Meds Home Medications and Allergies Home Medications Medication Instructions Recorded Confirmed Type prenat.vits,yesenia,vli-dfmo-xeupn 1 tab PO QDAY 02/18/23 09/28/23 History cetirizine 10 mg capsule (Zyrtec) 10 mg PO QDAY PRN 07/20/23 09/28/23 History Allergies Allergy/AdvReac Type Severity Reaction Status Date / Time No Known Allergies Allergy Verified 09/28/23 10:47
== END 2023-09-19 14:14 | disposition home or self-care (01) ==
PROVIDERS: PCP Pediatrics; Visit Provider Obstetrics & Gynecology
DX: P92.5 Neonatal difficulty in feeding at breast (principal)
CPT/HCPCS: 99211

== ENCOUNTER 2023-09-23 07:30 | Outpatient (REF) | payer OTHER, SELFPAY | END 2023-09-23 07:31 | disposition home or self-care (01) | LOC: NFLDREF 07:30 | PROVIDERS: PCP Pediatrics; Referring Provider Pediatrics; Visit Provider Physician Assistant Medical | DX: R35.0 Frequency of micturition (principal); N39.0 Urinary tract infection, site not specified | CPT/HCPCS: 87086 ==

== ENCOUNTER 2023-10-26 10:47 | Outpatient (CLI) | payer OTHER, SELFPAY | END 2023-10-26 10:48 | disposition home or self-care (01) | LOC: NFLDREF 10:49 | PROVIDERS: PCP Pediatrics; Visit Provider Registered Nurse | DX: Z39.2 Encounter for routine postpartum follow-up (principal) | CPT/HCPCS: 87086 ==

== ENCOUNTER 2025-05-23 10:53 | Outpatient (CLI) | payer OTHER, SELFPAY ==
[2025-05-25 00:11] LABS: HPV Source Cervix
[2025-05-28 14:19] LABS: Pap Test Digital Imaging Done
== END 2025-05-23 10:54 | disposition home or self-care (01) ==
PROVIDERS: Visit Provider Registered Nurse
DX: Z01.419 Encounter for gynecological examination (general) (routine) without abnormal findings (principal); Z13.6 Encounter for screening for cardiovascular disorders
CPT/HCPCS: 80061; 87624; 87625; 88141; 88142; 88175

== ENCOUNTER 2025-07-04 09:39 | Outpatient (CLI) | payer OTHER, SELFPAY | END 2025-07-04 09:40 | disposition home or self-care (01) | PROVIDERS: Visit Provider Registered Nurse | DX: R53.83 Other fatigue (principal) | CPT/HCPCS: 80051; 82306; 82565; 84443; 84450; 84460 ==

== ENCOUNTER 2025-09-19 14:26 | Outpatient (CLI) | payer OTHER, SELFPAY ==
--- NOTE | 2025-09-19 14:40 | CRLHL7_ITS ---
For Patients: As a result of the Century Cures Act, medical imaging exams and procedure reports are released immediately into your electronic medical record. You may view this report before your referring provider. If you have questions, please contact your health care provider. INDICATION: BILATERAL SCREENING MAMMOGRAM, ASYMPTOMATIC 39 Y/O FEMALE COMPARISON: BASELINE TECHNIQUE: Digital mammogram in CC and MLO projections including computer-aided detection (CAD) and tomosynthesis. BREAST COMPOSITION: The breasts are heterogeneously dense, which may obscure small masses. FINDINGS: No suspicious findings. ASSESSMENT: BI-RADS 1 Negative RECOMMENDATION: Annual screening mammogram. A lay language report of this examination will be provided to the patient. Dictated by: Pj Pearce MD @ 09/20/2025 09:02:32 (Electronically Signed)
== END 2025-09-19 14:27 | disposition home or self-care (01) ==
LOC: MAMMO 14:27
PROVIDERS: Visit Provider Registered Nurse
DX: Z12.31 Encounter for screening mammogram for malignant neoplasm of breast (principal); R92.333 Mammographic heterogeneous density, bilateral breasts
CPT/HCPCS: 77063; 77067